=== PATIENT | female | born 1985 | race Caucasian/White ===

== ENCOUNTER → 2022-05-22 | Outpatient (CLI) | payer MEDICAID, SELFPAY ==
--- NOTE | 2022-05-22 14:14 | BI_ITS ---
MAMMOGRAPHY - BILATERAL DIAGNOSTIC REASON FOR EXAM: Female, 37 years old. Right breast lump. PERTINENT HISTORY: Aunt with breast cancer. TECHNIQUE: Digital bilateral breast anna amrie (3D mammographic acquisition) in the CC and MLO projections. 2-D mediolateral oblique (MLO) and craniocaudad (CC) views of both breasts were obtained. CAD: Full Field Digital Mammography with Computer Added Detection was performed. COMPARISON: None. Baseline examination. FINDINGS: Breast Composition: The breasts are heterogeneously dense, which may obscure small masses. The palpable abnormality corresponds to a 1.5 cm x 1.4 cm nodular density in the slightly inferior central portion of the right breast. There is also evidence of a 1.3 cm x 2 cm nodule seen best on the medial aspect of the right breast on the craniocaudad view. Correlation with ultrasound is recommended. No other significant abnormalities are identified. BI/DIAG MAMM W/CAD, BILAT IMPRESSION: The palpable abnormality corresponds to 1.5 cm x 1.4 some nodular density in the slightly inferior central portion of the right breast. Targeted ultrasound correlation is recommended. There is also evidence of a 1.3 cm x 2 cm nodule in the medial aspect of the right breast as seen best on the craniocaudad view. Targeted ultrasound recommended. ASSESSMENT CATEGORY: BIRADS Category 0: Incomplete. Need additional imaging evaluation. A letter regarding these results will be sent to the patient by the facility within 30 days. Approximately 10% of breast cancers are not detected by mammography. A normal mammogram should not delay biopsy of a clinically suspicious abnormality. Electronically Signed: Kirby Lagos MD at 15:03 EDT ,
--- NOTE | 2022-05-22 14:14 | US_ITS ---
STUDY: ULTRASOUND BREAST - RIGHT REASON FOR EXAM: Female, 37 years old. Abnormal screening mammogram. TECHNIQUE: Axial and longitudinal images of the RIGHT breast were performed with a high resolution ultrasound transducer. # OF IMAGES: 26 COMPARISON: Comparison is made with prior mammogram done earlier today. FINDINGS: RIGHT Breast: The palpable abnormality corresponds to a 1.7 cm x 1.7 cm or 1.1 cm well-defined hypoechoic solid nodule at the 7:00 position of the breast at 4 cm from nipple. Biopsy is recommended. Adjacent to this, there is a 5 mm x 6 mm x 4 mm well-defined hypoechoic solid nodule. There is also evidence of a 1 cm x 0.7 cm x 0.7 cm hypoechoic nodule at the 4:00 position breast at 4 cm from the nipple. Biopsy recommended. US/Breast Limited Unilateral IMPRESSION: The pathologic amount the response to a 1.7 cm x 1.7 cm x 1.1 cm well-defined hypoechoic solid nodule at the 7:00 position of the breast at 4 cm from nipple. There is also evidence of a 1 cm x 0.7 cm x 0.7 cm hypoechoic nodule at the 4:00 position of the breast at 4 cm from the nipple. Biopsy recommended. ASSESSMENT CATEGORY: BIRADS Category 4: Suspicious - Biopsy Should Be Considered. A letter regarding these results will be sent to the patient by the facility within 30 days. Electronically Signed: Kirby Lagos MD at 14:04 EDT ,
== END | disposition home or self-care (01) ==
PROVIDERS: Visit Provider Nurse Practitioner Women's Health
DX: Z12.31 Encounter for screening mammogram for malignant neoplasm of breast (principal); N63.15 Unspecified lump in the right breast, overlapping quadrants
CPT/HCPCS: 77062; 76642; 77066; G0279

== ENCOUNTER → 2022-05-25 | Outpatient (CLI) | payer MEDICAID, SELFPAY ==
--- NOTE | 2022-05-25 | IMM_PTH ---
PATIENT: VANESSA DOMINGO LOC: [facility] U#:[id number] AGE/SX: 37/F ROOM: RE05/25/[address]: Dr. Sergei Bingham MD : 1985 BED: DIS: 05/25/2022 SPEC #: [id number] RECD: 05/29/22 13:30 STATUS: SHAILESH REQ #: [id number] XAVIER: 05/25/22 00:[address]: Sergei Bingham DEPT: IMMUNOHISTOCHEMISTRY RECD BY: Leann Crespo ENTERED: 05/29/22 13:32 SP TYPE: IMMUNO OTHR DR: No Primary Care Phys Tissues: B - Right breast, NOS Procedures: SMA (add) CALPONIN-1 (add) CK20 (add) CK7 (add) CK8 (add) E-CAD (add) P53 (add) Pankeratin (initial) P40 (add) PHYSICIAN & INSTITUTION [address] [address] SPECIMEN INFORMATION: Tissue Source: B ? Right breast 7 o?clock Clinical Info: Right breast masses Specimen Number: [id number] CPT code: 81239, 94423 x8 METHODOLOGY: Deparaffinized sections of prefer/formalin-fixed tissue or PAP/DQ stained slides are incubated with monoclonal/polyclonal antibodies/oligonucleotide probes. Localization is made via biotin free immunoperoxidase method. Appropriate controls are performed and reacted as expected. Results on target cell population are indicated in the following table: RESULTS: ANTIBODY / CLONE RESULT Block B E-Cad (ECH-6) negative AE1-3 (AE1/AE3/PCK26) positive CK7 (OV-TL12/30) positive CK8 (08sgxvK84) positive CK20 (KS20.8) negative Calponin-1 (VW301R) positive Actin (1A4) positive P40 (BC28) positive P53 (DO-7) positive, wild type, dim These tests were developed and their performance characteristics determined by [facility]. They may not have been cleared or approved by the U.S. Food and Drug Administration. The FDA has determined that such clearance or approval is not necessary. The above immunohistochemical/dualISH markers are ordered and reviewed by the Pathologist. INTERPRETATION: B. Right breast at 7 o?clock, biopsy: Atypical lobular hyperplasia. Tubular adenoma. AM:german 05/30/2022
--- NOTE | 2022-05-25 | BRBX_PTH ---
PATIENT: VANESSA DOMINGO LOC: [facility] U#:[id number] AGE/SX: 37/F ROOM: RE05/25/[address]: Dr. Sergei Bingham MD : 1985 BED: DIS: 05/25/2022 SPEC #: [id number] RECD: 05/25/22 15:59 STATUS: SHAILESH RESanchez #: [id number] XAVIER: 05/25/22 00:[address]: Sergei Bingham DEPT: SURGICAL PATHOLOGY RECD BY: Rene Maxwell ENTERED: 05/26/22 08:56 SP TYPE: BREAST BX OTHR DR: No Primary Care Phys Tissues: A - Right breast, NOS B - Right breast, NOS Procedures: Surgery Specimen Level IV Comments: @ Specimen number changed from [id number] to [id number] @ on 05/26/22 at 1403 by BOY. HEADER OPERATION: Right breast biopsy x2 PRE-OP DIAGNOSIS: Right breast masses TISSUE SUBMITTED: A ? Right breast 4 o?clock, B - Right breast 7 o?clock MICROSCOPIC DIAGNOSIS A. Right breast at 4 o?clock, needle core biopsy: Fibroadenoma. B. Right breast at 7 o?clock, needle core biopsy: Atypical lobular hyperplasia. Fibroadenoma with predominantly ductal component. See comment. AM:german 05/29/2022 COMMENT B. Immunohistochemistry ([id number]) supports the above diagnosis. Case has been reviewed in consultation with Dr. Santo who concurs with the above diagnosis. IDC:SJ MICROSCOPIC DESCRIPTION Slides are reviewed. GROSS DESCRIPTION A - Received in fixative is one container labeled with the patient's name and designated right breast 4 o'clock. The specimen consists of multiple irregular fragments of light mayes soft tissue that in aggregate measure 1.5 x 0.5 x 0.1 cm. The specimen is totally submitted in one cassette. B - Received in fixative is one container labeled with the patient's name and designated right breast 7 o'clock. The specimen consists of multiple irregular fragments of light mayes soft tissue that in aggregate measure 1.5 x 0.5 x 0.1 cm. The specimen is totally submitted in one cassette. / ZAINAB:german 05/26/2022 TC:? CPT: 41978 x2
== END | disposition home or self-care (01) ==
LOC: LABSPEC 16:23
PROVIDERS: Visit Provider Surgery
DX: D24.1 Benign neoplasm of right breast (principal); N60.91 Unspecified benign mammary dysplasia of right breast
CPT/HCPCS: 88305; 88341; 88342

== ENCOUNTER 2022-06-12 11:56 | Day surgery (SDC) | payer MEDICAID, SELFPAY ==
--- NOTE | 2022-06-12 | BRBX_PTH ---
PATIENT: VANESSA DOMINGO [place] [facility] [place][id number] AGE/SX: 37/F ROOM: RE06/12/[address]: Dr. Sergei Bingham MD : 1985 BED: DIS: 06/12/2022 SPEC #: [id number] RECD: 06/13/22 09:29 STATUS: SHAILESH BATSHEVA #: [id number] XAVIER: 06/12/22 00:[address]: Sergei Bingham DEPT: SURGICAL PATHOLOGY RECD BY: Rene Maxwell ENTERED: 06/13/22 09:29 SP TYPE: BREAST BX OTHR DR: ANTHONY Lynn Tissues: Right breast, NOS Procedures: Surgery Specimen Level V HEADER OPERATION: Ultrasound-guided excisional breast biopsy PRE-OP DIAGNOSIS: Right breast mass TISSUE SUBMITTED: Right breast mass MICROSCOPIC DIAGNOSIS Right breast mass, ultrasound-guided excisional biopsy: Fibroadenoma with extensive glandular component (tubular adenoma) with area of adenosis and focal minimal atypical lobular hyperplasia. Negative for atypia or malignancy. Changes consistent with previous biopsy site. See comment. SJ:rg 06/15/2022 COMMENT Focal microcalcifications are also noted in the lesion. Immunohistochemistry ([id number]) supports the above diagnosis. Please make reference to previous specimen ([id number]) right breast at 4 o?clock, needle core biopsy with diagnosis of ?fibroadenoma? and right breast at 7 o?clock, needle core biopsy with diagnosis of ?atypical lobular hyperplasia and fibroadenoma with predominantly ductal component.? Case has been reviewed in consultation with Dr. Teixeira who concurs with the above diagnosis. IDC:AM MICROSCOPIC DESCRIPTION Slides are reviewed. GROSS DESCRIPTION Received in fixative is one container labeled with the patient's name and designated right breast mass. The specimen consists of an irregular, unoriented fragment of mayes-yellow fibrofatty tissue measuring 3.5 x 2.5 x 1.5 cm and weighing 10.1 gm. A metallic wire is present in the specimen. The specimen is serially sectioned to reveal a firm, rubbery nodule measuring 2.0 x 1.5 x 1.2 cm. A metallic tracer clip is identified in its mid portion. The specimen is sectioned and totally submitted in seven cassettes after additional fixation. / JAMMIE:german 06/13/2022 TC:1 CPT: 77292
--- NOTE | 2022-06-12 | IMM_PTH ---
PATIENT: VANESSA DOMINGO LOC: [facility] U#:[id number] AGE/SX: 37/F ROOM: RE06/12/[address]: Dr. Sergei Bingham MD : 1985 BED: DIS: 06/12/2022 SPEC #: [id number] RECD: 06/16/22 09:56 STATUS: SHAILESH REQ #: [id number] XAVIER: 06/12/22 00:[address]: Sergei Bingham DEPT: IMMUNOHISTOCHEMISTRY RECD BY: Leann Crespo ENTERED: 06/16/22 09:59 SP TYPE: IMMUNO OTHR DR: Brian Vick, [employer]ah Tissues: Right breast, NOS Procedures: CK8 (initial) CALPONIN-1 (add) CK8 (add) E-CAD (add) P40 (add) PHYSICIAN & INSTITUTION [place] [address] SPECIMEN INFORMATION: Tissue Source: Right breast mass Clinical Info: Right breast mass Specimen Number: [id number] #1 & 2 CPT code: 88231, 56923 x7 METHODOLOGY: Deparaffinized sections of prefer/formalin-fixed tissue or PAP/DQ stained slides are incubated with monoclonal/polyclonal antibodies/oligonucleotide probes. Localization is made via biotin free immunoperoxidase method. Appropriate controls are performed and reacted as expected. Results on target cell population are indicated in the following table: RESULTS: ANTIBODY / CLONE RESULT Block 1 CK8 (46ilyyC78) positive E-Cad (ECH-6) positive Calponin-1 (UY740J) positive P40 (BC28) positive Block 2 CK8 (54heroN97) positive E-Cad (ECH-6) negative, focally Calponin-1 (XV758S) positive P40 (BC28) positive These tests were developed and their performance characteristics determined by [facility]. They may not have been cleared or approved by the U.S. Food and Drug Administration. The FDA has determined that such clearance or approval is not necessary. The above immunohistochemical/dualISH markers are ordered and reviewed by the Pathologist. INTERPRETATION: Right breast mass, ultrasound-guided biopsy: Fibroadenoma with focal area of adenosis. Focal minimal atypical hyperplasia. Negative for malignancy. SJ:german 06/19/2022 Case has been reviewed in consultation with Dr. Teixeira who concurs with the above diagnosis. IDC:AM
[2022-06-12 12:37] LABS: Internal QC Validated? YES +Cl - CLEAR BKGD; Pregnancy, Urine Negative Negative
[2022-06-12] MEDS: Lactated Ringers 1,000 ML 15 ML IV (12:45)
[2022-06-12 12:48] VITALS: BP 122/76; PULSE 78; RESP 16; TEMP 37.5; O2SAT 98; BMI 32.5
--- NOTE | 2022-06-12 12:59 | HP.PCM_ITS ---
History and Physical Date of Admission: 06/12/22 Intake Intake Visit Reasons:?DISCUSS SURGERY Chief Complaint: discuss surgery Allergies cephalexin Allergy (Mild, Uncoded 05/25/22 14:03) Other Medications famotidine 20 mg tablet 20 mg PO DAILY 05/25/22 [History Confirmed 06/05/22] PFSH Medical History? Legally blind Surgical History? S/P eye surgery Family History? Mother Cancer ?? ? lungGrandmother DiabetesBrother Thyroid disorder Social History? Smoking Status:? Former smoker alcohol intake:? current substance use type:? marijuana HPI HPI HPI: Patient is here for follow-up.? She had right breast biopsy during her last visit.? One of the masses came back as a fibroadenoma with atypical lobular hyperplasia. ROS General General: No weight change, appetite, fatigue, colon cancer, breast cancer or weakness HEENT HEENT: No difficulty swallowing, eye injury, eye surgery, swollen glands or hoarseness Endo Endocrine: No thyroid disease, diabetes mellitus, thyroid cancer, Hair loss, heat intolerance or cold intolerance Skin Skin: No rash or changing moles Breast Breast: No left breast lump, right breast lump, nipple discharge, breast pain, abnormal mammogram, abnormal US or breast enlargement Musc Musculoskeletal: No back problems, arthritis, rheumatoid arthritis, gout or joint pain Cardio Cardiovascular: No murmur, pacemaker, heart disease, atrial fibrillation, high blood pressure, heart attack, heart stent, palpitations, shortness of breat with exertion or chest pain Psych Psychiatric: No depression, anxiety or hearing voices Resp Respiratory: No shortness of breath, No sleep apnea, No cough, No COPD, No asthma, No emphysema and No wheezing Gastro Gastrointestinal: No abdominal pain, No nausea or vomiting, No diarrhea, No constipation, No blood in stool, No acid reflux, No hemorrhoids, No ulcers, No gallbladder problem and No black,tarry stools Manuel Hematologic: No blood thinners, No blood disorders, No bleeding, No anemia and No blood clots Neuro Neurologic: No system reviewed and no additional complaints, except as documented, No as per HPI, No abnormal gait, No abnormal hearing, No abnormal movements, No abnormal speech, No behavioral changes, No burning sensations, No confusion, No convulsions, No disequilibrium, No dizziness, No localized weakness, No frequent falls, No headache(s), No lack of coordination, No loss of vision, No memory loss, No numbness, No other visual disturbances, No radicular pain, No restless legs, No sensory deficit, No syncope, No tingling, No tremor(s), No weakness and No other Exam Const General: cooperative Orientation: alert and oriented x3 HENMT Head: normal to inspection Neck Neck: normal visual inspection and full ROM Chest Chest palpation & inspection: normal inspection of the chest Resp Effort & Inspection: normal respiratory effort Auscultation: clear to auscultation bilaterally Cardio Rate: regular rate Rhythm: regular rhythm GI Inspection: non-distended Palpation: soft and nontender Skin General: no rashes or lesions noted Neuro General: patient alert and patient oriented x3 Extrem General: full ROM Psych Appearance: grossly normal Mental Status: mental status grossly normal Assessment and Plan Assessment and Plan (1) Breast mass, right: ?Status:?Acute ?Qualifiers: ?Breast mass location:?lower outer quadrant? Qualified Code(s):?N63.13 - Unspecified lump in the right breast, lower outer quadrant ?Plan: Patient had biopsy of 2 breast masses during her last visit.? The larger mass at the 7 o'clock position was found to be a fibroadenoma with atypical lobular h yperplasia.? The mass at the 4 o'clock position was a normal fibroadenoma.? I discussed excising the larger mass for a more complete excisional biopsy due to the atypical cells.? The patient does not want the operative the fibroadenoma removed as it would likely necessitate 2 incisions.? I discussed the excision with her as well as the risks of bleeding and infection and need for further surgery and the patient consents to proceed. Sergei Bingham MD Pager: [facility] [address] [place] [address] [address] [place] [address] Office: I have examined the patient and the H&P has been reviewed. There are no clinical changes since date of exam.
[2022-06-12] MEDS: Clindamycin 900 MG/50 ML BAG 75 MG IV (13:21)
--- NOTE | 2022-06-12 13:48 | BI_ITS ---
SURGICAL BREAST SPECIMEN RADIOGRAPH CLINICAL: Document presence of tissue clip marker in biopsy specimen. FINDINGS: Specimen shows presence of tissue clip marker. Electronically Signed: Kirby Lagos MD at 14:33 EDT , BI/Breast Biopsy Specimen IMPRESSION: undefined
[2022-06-12] MEDS: Bupivacaine 0.25% 30 ML Vial (13:53)
[2022-06-12 14:03] VITALS: BP 114/89; BP 122/76; PULSE 97; RESP 18; TEMP 37.1; O2SAT 99
[2022-06-12 14:15] VITALS: BP 119/79; BP 122/76; PULSE 92; RESP 16; O2SAT 99
--- NOTE | 2022-06-12 14:15 | PCM.OPRPT ---
Report of Operation Date of Procedure: 06/12/22 Pre-Operative Diagnosis: Right breast mass with atypical lobular hyperplasia Post-Operative Diagnosis: Same Surgery/Procedure Performed:: 1. Ultrasound-guided right breast wire localization 2. Right breast partial mastectomy Specimen's removed: Right breast mass Description of Procedure: Patient was brought back the operating room and general anesthesia was induced. The right breast was prepped and draped in usual sterile fashion. Ultrasound was used to localize the mass and then a wire was placed into it under ultrasound guidance. Next the wire was prepped as well as the breast once more. An incision was marked in the areolar border and then injected with local anesthetic. Incision was made with a scalpel and the wire was brought into the incision. Dissection was carried out with electrocautery to excise the mass completely and sent for pathology. The cavity was irrigated and suctioned dry and hemostasis was maintained using electrocautery. The cavity was inspected once more and the incision was closed with interrupted 3-0 Vicryl sutures and a running 4-0 Monocryl suture. Dermabond was applied. Patient was awoken and taken to PACU in stable condition. X-ray of the mass revealed the clip and wire were both completely removed. Admit VTE Documentation VTE Mechan Device Prophylaxis: SCD's
--- NOTE | 2022-06-12 14:17 | EX.PCM.DISCH ---
Discharge Instructions Procedure Breast Surgery Diet Discharge Diet: No restrictions Activity Discharge Activity: May Not Drive (for 2-3 days or while taking narcotic pain medications.) and May Shower (Tomorrow) May shower in (days): 1 Lifting Restrictions: 20 lbs for 1 week Dressing / Incision Call your doctor if your incision/area has: Continuous Slow Oozing, Sudden Increased Bleeding, Increased Pain/ Swelling, Increased Redness, Foul Smelling Discharge and Swelling at the incision site Call your doctor if you observe: Fever of 101 or Higher Suture Line Care: Avoid Pulling/Pushing and Avoid Pinching/Bending Follow Up Care Please Follow Up With: Sergei Bingham MD When: Please call to schedule 2 week follow up appointment. [phone] Test Results: Test results from this visit will be discussed in further detail at your follow-up appointment, if applicable. Discharge Plan Admission Attending Provider: Sergei Bingham Primary Care Provider: Brian Vick NP Discharge Orders/Prescriptions Prescriptions: New oxycodone 5 mg tablet 5 - 10 mg PO Q6H PRN (Reason: pain) 5 Days Qty: 15 0RF No Action famotidine 20 mg tablet 20 mg PO DAILY Multi Vitamin 1 tab PO/SL DAILY Referrals / Follow Up: Brian Vick NP, [employer] [Primary Care Provider] - Disposition Disposition (needs filled in before D/C Order can be placed): Home, Self Care
[2022-06-12 14:30] VITALS: BP 112/78; BP 122/76; PULSE 72; RESP 16; TEMP 37.2; O2SAT 100
[2022-06-12 15:30] VITALS: BP 122/76
== END 2022-06-12 16:02 | disposition home or self-care (01) ==
LOC: SDC 11:57 → AC 12:12
PROVIDERS: Anesthesiology; PCP Nurse Practitioner Family; Referring Provider Surgery; Visit Provider Surgery
PROC: (CPT 19083; principal; 2022-06-12 13:15)
DX: N60.91 Unspecified benign mammary dysplasia of right breast (principal); H54.8 Legal blindness, as defined in USA; J45.909 Unspecified asthma, uncomplicated; F32.A Depression, unspecified; F41.9 Anxiety disorder, unspecified; K21.9 Gastro-esophageal reflux disease without esophagitis; Z87.891 Personal history of nicotine dependence
CPT/HCPCS: 19125; 00400; 88305; 76098; 81025; 88307; 88341; 88342; J7120; J2405

== ENCOUNTER → 2023-01-02 | Outpatient (CLI) | payer MEDICAID, SELFPAY ==
--- NOTE | 2023-01-02 14:50 | US_ITS ---
STUDY: ULTRASOUND BREAST - RIGHT REASON FOR EXAM: Female, 37 years old. Follow-up for right breast biopsy and right lumpectomy. TECHNIQUE: Axial and longitudinal images of the RIGHT breast were performed with a high resolution ultrasound transducer. # OF IMAGES: 17 COMPARISON: Comparison is made with prior mammogram dated May 22, 2022 and prior ultrasound dated May 22, 2022. FINDINGS: RIGHT Breast: A tissue clip marker is seen within the 1 cm x 0.7 cm hypoechoic nodule at the 4:00 position of the breast at 4 cm from the nipple. This is unchanged. The lumpectomy site is at the 7:00 position of the breast of 4 cm from the nipple. US/Breast Limited Unilateral IMPRESSION: Tissue clip marker seen within a 1 cm x 0.7 cm hypoechoic nodule at the 4:00 position of the breast at 4 cm from the nipple. ASSESSMENT CATEGORY: BIRADS Category 2: Benign. A letter regarding these results will be sent to the patient by the facility within 30 days. Electronically Signed: Kirby Lagos MD at 8:30 EST ,
== END | disposition home or self-care (01) ==
LOC: OPUS 14:49
PROVIDERS: PCP Nurse Practitioner Family; Referring Provider Surgery; Visit Provider Surgery
DX: N63.10 Unspecified lump in the right breast, unspecified quadrant (principal)
CPT/HCPCS: 76642